=== PATIENT | male | born 1990 | race Hispanic/Latino ===

== ENCOUNTER 2018-02-17 23:45 | Emergency (ER) | payer BC ==
[2018-02-18 04:00] LABS: Basophils % (Auto) 0.5 % (0.0-1.8); Eosinophils # (Auto) 0.1 K/mm3 (0.0-0.4); Hematocrit 45.4 % (30.3-42.9); Hemoglobin 15.7 gm/dl (10.1-14.3); Lymphocytes # (Auto) 2.9 K/mm3 (1.2-5.4); Lymphocytes % (Auto) 42.6 % (13.4-35.0); Mean Corpuscular HGB Conc 35 % (30-34); Mean Corpuscular Hemoglobin 30 pg (28-32); Mean Corpuscular Volume 86 fl (79-97); Monocytes # (Auto) 0.7 K/mm3 (0.0-0.8); Monocytes % (Auto) 9.7 % (0.0-7.3); Platelet Count 267 K/mm3 (140-440); Red Blood Count 5.26 M/mm3 (3.65-5.03); Red Cell Distribution Width 12.7 % (13.2-15.2)
--- NOTE | 2018-02-18 04:12 | XRay Report ---
FINAL REPORT EXAM: XR CHEST ROUTINE 2V HISTORY: ROMANA TECHNIQUE: PA and lateral views of the chest were submitted. FINDINGS: The heart size and vascularity appear normal. The lungs are clear. Pleural fluid is not seen. The skeletal structures are well-maintained. IMPRESSION: No acute cardiopulmonary process.
[2018-02-18 04:27] LABS: Alanine Aminotransferase 19 units/L (7-56); Albumin 4.5 g/dL (3.9-5); BUN/Creatinine Ratio 25; Blood Urea Nitrogen 20 mg/dL (9-20); Hemolysis Index 9
--- NOTE | 2018-02-18 07:56 | Emergency Department Report ---
ED N/V/D HPI - General Chief complaint: Dyspnea/Respdistress Stated complaint: VOMITING UNABLE TO DRINK Time Seen by Provider: 02/18/18 07:48 Source: patient Mode of arrival: Ambulatory Limitations: No Limitations - History of Present Illness Initial comments: Patient's 27-year-old male presents emergency room with complaints of nausea and vomiting that started at 9 PM the day prior. Patient denies chest pain shortness of breath. Patient denies abdominal pain. Patient denies fever and chills. Patient states she is just not able to hold anything down. Patient states nausea and vomiting are better with rest and being nothing by mouth. Patient states that they're worse with eating and movement. Patient denies recent travel. Patient denies eating something different. Patient denies blood in stool or blood in vomitus. Patient denies weakness. I discussed with patient his original complaint of shortness of breath and dyspnea. However patient states he did not mean that and never had shortness of breath or dyspnea. His only complaint is nausea and vomiting and inability to hold foods and liquids down. The patient states he does not have any chest pain or shortness of breath or fever and chills. MD complaint: nausea, vomiting -: Sudden Description of Vomiting: watery Associated Abdominal Pain: No Severity: severe Consistency: intermittent Improves with: rest Worsens with: eating, movement Associated Symptoms: nausea/vomiting. denies: myalgias, chest pain, cough, diaphoresis, fever/chills, headaches, loss of appetite, malaise, rash, dysuria, shortness of breath, syncope, weakness - Related Data Previous Rx's Medication Instructions Recorded Last Taken Type Ondansetron [Zofran Odt] 4 mg PO Q8HR PRN #15 tab.rapdis 02/18/18 Unknown Rx Allergies Allergy/AdvReac Type Severity Reaction Status Date / Time No Known Allergies Allergy Unverified 02/18/18 03:27 ED Review of Systems ROS: Stated complaint: VOMITING UNABLE TO DRINK Other details as noted in HPI Constitutional: denies: chills, fever Eyes: denies: eye pain, eye discharge, vision change ENT: denies: ear pain, throat pain Respiratory: denies: cough, shortness of breath, wheezing Cardiovascular: denies: chest pain, palpitations Endocrine: no symptoms reported Gastrointestinal: nausea, vomiting. denies: abdominal pain, diarrhea Genitourinary: denies: urgency, dysuria Musculoskeletal: denies: back pain, joint swelling, arthralgia Skin: denies: rash, lesions Neurological: denies: headache, weakness, paresthesias Psychiatric: denies: anxiety, depression Hematological/Lymphatic: denies: easy bleeding, easy bruising ED Past Medical Hx - Past Medical History Previous Medical History?: No - Surgical History Past Surgical History?: No - Family History Family history: no significant - Social History Smoking Status: Never Smoker Substance Use Type: Alcohol - Medications Home Medications: Home Medications Medication Instructions Recorded Confirmed Last Taken Type Ondansetron [Zofran Odt] 4 mg PO Q8HR PRN #15 tab.rapdis 02/18/18 Unknown Rx ED Physical Exam - General Limitations: No Limitations General appearance: alert, in no apparent distress - Head Head exam: Present: atraumatic, normocephalic - Eye Eye exam: Present: normal appearance - ENT ENT exam: Present: mucous membranes moist - Neck Neck exam: Present: normal inspection - Respiratory Respiratory exam: Present: normal lung sounds bilaterally. Absent: respiratory distress - Cardiovascular Cardiovascular Exam: Present: regular rate, normal rhythm. Absent: systolic murmur, diastolic murmur, rubs, gallop - GI/Abdominal GI/Abdominal exam: Present: soft, normal bowel sounds - Rectal Rectal exam: Present: deferred - Extremities Exam Extremities exam: Present: normal inspection - Back Exam Back exam: Present: normal inspection - Neurological Exam Neurological exam: Present: alert, oriented X3 - Psychiatric Psychiatric exam: Present: normal affect, normal mood - Skin Skin exam: Present: warm, dry, intact, normal color. Absent: rash ED Course Vital Signs 02/18/18 02/18/18 02/18/18 02:21 07:44 10:14 Temperature 98.6 F 98.0 F Pulse Rate 73 62 71 Respiratory 18 16 14 Rate Blood Pressure 125/82 Blood Pressure 121/74 116/73 [Right] O2 Sat by Pulse 99 98 100 Oximetry - Reevaluation(s) Reevaluation #1: We'll give patient a by mouth challenge after having a dose of ODT Zofran 02/18/18 07:59 Reevaluation #2: Patient tolerated by mouth intake. Patient states he is feeling better since being able to tolerate oral intake. Patient is stable for discharge. We'll discharge patient home with antiemetics. Patient agrees with plan of care. Patient given discharge instructions as well as return to ER precautions 02/18/18 09:53 ED Medical Decision Making - Lab Data Result diagrams: 02/18/18 03:51 02/18/18 03:51 - EKG Data -: EKG Interpreted by Me EKG shows normal: sinus rhythm, axis, intervals, QRS complexes, ST-T waves Rate: normal - EKG Data Interpretation: no acute changes - Radiology Data Radiology results: report reviewed EXAM: XR CHEST ROUTINE 2V HISTORY: ROMANA TECHNIQUE: PA and lateral views of the chest were submitted. FINDINGS: The heart size and vascularity appear normal. The lungs are clear. Pleural fluid is not seen. The skeletal structures are well-maintained. IMPRESSION: No acute cardiopulmonary process. Transcribed By: RB Dictated By: JACKIE NOVA MD Electronically Authenticated By: JACKIE NOVA MD Signed Date/Time: 02/18/18 0404 - Medical Decision Making Is a 27-year-old female presents to emergency room with complaints of nausea and vomiting. Patient's labs are unremarkable and findings are consistent with viral gastroenteritis. Patient was discharged home with an antiemetic and a BRAT diet patient instructed to increase diet slowly. Patient also given ER precautions. Patient instructed to follow up with primary care in 3-5 days. - Differential Diagnosis gastroenteritis. Gastritis. Nausea vomiting. Food exposure Critical care attestation.: If time is entered above; I have spent that time in minutes in the direct care of this critically ill patient, excluding procedure time. ED Disposition Clinical Impression: Gastroenteritis Nausea & vomiting Qualifiers: Vomiting type: unspecified Vomiting Intractability: non-intractable Qualified Code(s): R11.2 - Nausea with vomiting, unspecified Disposition: DC-01 TO HOME OR SELFCARE Is pt being admited?: No Does the pt Need Aspirin: No Condition: Stable Instructions: Gastroenteritis (ED), Acute Nausea and Vomiting (ED) Additional Instructions: Patient follow up with primary care in 3-5 days. Patient to return to ER if condition worsens. Patient to take meds as directed. Patient to increase water. Patient to eat a Hemanth diet. Patient to rest. Prescriptions: Ondansetron [Zofran Odt] 4 mg PO Q8HR PRN #15 tab.rapdis PRN Reason: Nausea And Vomiting Referrals: PRIMARY CARE, [Primary Care Provider] - 3-5 Days Forms: Work/School Release Form(ED) Time of Disposition: 09:56
[2018-02-18] MEDS ORDERED: ZOFRAN ODT PO ONE (07:59)
[2018-02-18 10:14] VITALS: BP 116/73
== END 2018-02-18 10:15 | disposition home or self-care (01) ==
LOC: ED 23:45
DX: K52.9 Noninfective gastroenteritis and colitis, unspecified (principal); Z79.899 Other long term (current) drug therapy
CPT/HCPCS: 36415; 71046; 80053; 85025; 93005; 93010; Q0162